=== PATIENT | male | born 1965 | race Caucasian/White ===

== ENCOUNTER 2016-08-17 10:56 | Emergency (ER) | payer SELFPAY ==
[~2016-08-17] VITALS: Ht 177.8 cm; Wt 109.3 kg
[2016-08-17 10:58] VITALS: BP 179/97; PULSE 109; RESP 18; TEMP 98.7; O2SAT 98
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
--- NOTE | 2016-08-17 11:00 | NUR ---
DR. COSME AT BEDSIDE EXAMINIG THE PT.
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
[2016-08-17] MEDS ORDERED: IBUPROFEN 800 MG TABLET PO ONE (11:15)
[2016-08-17] MEDS ORDERED: cloNIDine HCL 0.1 MG TABLET PO ONE (11:15)
--- NOTE | 2016-08-17 11:25 | NUR ---
PT. OUT TO X RAY VIA WHEELCHAIR
[2016-08-17] MEDS ORDERED: cloNIDine HCL 0.1 MG TABLET ONE (11:32)
--- NOTE | 2016-08-17 11:35 | NUR ---
PT. BACK TO BED 8 VIA WHEELCHAIR
[2016-08-17 12:15] VITALS: BP 136/78; PULSE 78; RESP 18; TEMP 98.7; O2SAT 98
--- NOTE | 2016-08-17 12:15 | NUR ---
Patient given written and verbal discharge instructions and verbalizes understanding. ER MD dr. york discussed with patient the results and treatment provided. Patient in stable condition. ID arm band removed. Rx of norco given. Patient educated on pain management and to follow up with PMD. Pain Scale 0/10 Opportunity for questions provided and answered.
--- NOTE | 2016-08-19 14:09 | NUR ---
ACCESSED CHART TO VERIFY PRESCRIPTION FROM PHARMACY
== END 2016-08-17 12:15 | disposition home or self-care (01) ==
LOC: SED 10:56
DX: S46.912A Strain of unspecified muscle, fascia and tendon at shoulder and upper arm level, left arm, initial encounter (principal); I10 Essential (primary) hypertension; V49.9XXA Car occupant (driver) (passenger) injured in unspecified traffic accident, initial encounter; Y93.89 Activity, other specified; Y99.8 Other external cause status; Y92.411 Interstate highway as the place of occurrence of the external cause
CPT/HCPCS: 73030; 99284